=== PATIENT | male | born 1955 | race Caucasian/White ===

== ENCOUNTER → 2017-04-04 | Outpatient (CLI) | payer OTHER ==
[2015-12-01 22:45] VITALS: BP 120/71
[~2017-04-04] MED LIST: ASPI81TA50 PO; BUPIVACAINE MPF 0.25% 10 ML VIAL. ONE; CHOL400T14 PO; FENO150C PO; FENO50CA PO; IBAN150T PO; IV NORMAL SALINE 1,000ML 1,000 ML ONE; LIDOCAINE 1% PF 30 ML VIAL. ONE; MELO15TA6 PO; MIDAZOLAM HCL PF 2 MG/2 ML VIAL. ONE; OMEG500C3 PO; methylPREDNISolone ACETATE 40 MG/ML VIAL. ONE
== END | disposition home or self-care (01) ==
LOC: SURG 06:40
PROVIDERS: ATTEND Anesthesiology Pain Medicine
DX: M47.816 Spondylosis without myelopathy or radiculopathy, lumbar region (principal); I48.91 Unspecified atrial fibrillation; M19.91 Primary osteoarthritis, unspecified site; Z98.890 Other specified postprocedural states
CPT/HCPCS: 64635; 64636; J1030; J2001; J2250; J3010; J3490; J7030

== ENCOUNTER → 2017-05-30 | Outpatient (CLI) | payer OTHER ==
[2015-12-01 22:45] VITALS: BP 120/71
[~2017-05-30] MED LIST changes: -BUPIVACAINE MPF 0.25% 10 ML VIAL. ONE; -IV NORMAL SALINE 1,000ML 1,000 ML ONE; -LIDOCAINE 1% PF 30 ML VIAL. ONE; -MIDAZOLAM HCL PF 2 MG/2 ML VIAL. ONE; -methylPREDNISolone ACETATE 40 MG/ML VIAL. ONE
== END | disposition home or self-care (01) ==
LOC: SURG 08:06
PROVIDERS: ATTEND Anesthesiology Pain Medicine
DX: M47.816 Spondylosis without myelopathy or radiculopathy, lumbar region (principal); I48.0 Paroxysmal atrial fibrillation; I10 Essential (primary) hypertension; Z87.891 Personal history of nicotine dependence
CPT/HCPCS: 99213

== ENCOUNTER 2018-02-25 16:15 | Emergency (ER) | payer OTHER ==
[~2018-02-25] VITALS: Ht 177.8 cm; Wt 99.8 kg
--- NOTE | 2018-02-25 17:04 | RAD ---
Left shoulder, 3 views, 02/25/2018: HISTORY: Fall, pain There is an old healed fracture of the mid humeral shaft with mild angulation. No acute shoulder fracture or dislocation is identified. IMPRESSION: No acute abnormality is detected. Left elbow, 3 views, 02/25/2018: There is a fracture of the radial head with slight depression of an anterolateral fragment. No other fracture or dislocation is identified. A moderate size elbow joint effusion is present. IMPRESSION: Acute radial head fracture. Left wrist, 3 views, 02/25/2018: No fracture or dislocation is identified. There is mild soft tissue swelling. IMPRESSION: No acute bony abnormality is detected. Electronically signed by: Faustino Chappell MD (02/25/2018 5:01 PM) [facility]
[2018-02-25] MEDS ORDERED: HYDR-971 PO (17:29)
--- NOTE | 2018-02-25 17:30 | PHYS DOC ---
Past History Past Medical History: A-Fib, High Cholesterol Past Surgical History: Tonsillectomy, Other Alcohol Use: Occasionally Drug Use: None Adult General Chief Complaint Chief Complaint: WRIST PAIN HPI HPI Patient is a 62 year old left handed male who presents with draining of a fall and pain in left wrist and elbow prior to arrival to ER. Patient states he had a fall from ladder and landed on his left side without hitting his head or loss of consciousness and complaining of pain in his left wrist and elbow without other injuries or focal neuro deficit. Patient rated his pain 4 out of 10 and doesn't want to have pain medication in ER. Review of Systems Review of Systems Constitutional: Denies fever or chills [] Eyes: Denies change in visual acuity, redness, or eye pain [] HENT: Denies nasal congestion or sore throat [] Respiratory: Denies cough or shortness of breath [] Cardiovascular: No additional information not addressed in HPI [] GI: Denies abdominal pain, nausea, vomiting, bloody stools or diarrhea [] : Denies dysuria or hematuria [] Musculoskeletal: Denies back pain, reports joint pain [] Integument: Denies rash or skin lesions [] Neurologic: Denies headache, focal weakness or sensory changes [] Endocrine: Denies polyuria or polydipsia [] All other systems were reviewed and found to be within normal limits, except as documented in this note. Allergies Allergies Allergies Coded Allergies Type Severity Reaction Last Updated Verified No Known Drug Allergies 12/01/15 No Physical Exam Physical Exam Constitutional: Well developed, well nourished, no acute distress, non-toxic appearance. [] HENT: Normocephalic, atraumatic Eyes: PERRLA, EOMI, conjunctiva normal, no discharge. [] Neck: Normal range of motion, no tenderness, supple, no stridor. [] Cardiovascular:Heart rate regular rhythm, no murmur [] Lungs & Thorax: Bilateral breath sounds clear to auscultation [] Abdomen: Bowel sounds normal, soft, no tenderness, no masses, no pulsatile masses. [] Skin: Warm, dry, no erythema, no rash. [] Back: No tenderness, no CVA tenderness. [] Extremities: Left upper extremity without deformity or edema or contusion, tenderness in left elbow and left wrist without neurovascular deficit Neurologic: Alert and oriented X 3, normal motor function, normal sensory function, no focal deficits noted. [] Psychologic: Affect normal, judgement normal, mood normal. [] Current Patient Data Vital Signs Vital Signs Date Time Temp Pulse Resp B/P (MAP) Pulse Ox O2 Delivery O2 Flow Rate FiO2 02/25/18 16:25 98.1 91 16 94 Room Air EKG EKG [] Radiology/Procedures Radiology/[place] [address] IMAGING REPORT Signed PATIENT: KOKI MENON ACCOUNT: [id number] : 1955 LOCATION: ER AGE: 62 SEX: M EXAM STATUS: REG ER ORD. PHYSICIAN: JATIN BENNETT MD REASON: injury PROCEDURE: ELBOW LEFT 3V Left shoulder, 3 views, 02/25/2018: HISTORY: Fall, pain There is an old healed fracture of the mid humeral shaft with mild angulation. No acute shoulder fracture or dislocation is identified. IMPRESSION: No acute abnormality is detected. Left elbow, 3 views, 02/25/2018: There is a fracture of the radial head with slight depression of an anterolateral fragment. No other fracture or dislocation is identified. A moderate size elbow joint effusion is present. IMPRESSION: Acute radial head fracture. Left wrist, 3 views, 02/25/2018: No fracture or dislocation is identified. There is mild soft tissue swelling. IMPRESSION: No acute bony abnormality is detected. Electronically signed by: Faustino Chappell MD (02/25/2018 5:01 PM) [facility] DICTATED AND SIGNED BY: FAUSTINO CHAPPELL MD DATE: 02/25/18 0144 CC: SRIRAM LIZ; JATIN BENNETT MD ~ Course & Med Decision Making Course & Med Decision Making Pertinent Imaging studies reviewed. (See chart for details) Patient had a fall and left radial head fracture and long arm splint was applied in ER and patient instructed to follow-up with continuous improvement coach orthopedic physician. discharge: I've spoken with the patient and/or caregivers. I've explained the patient's condition, diagnosis and treatment plan based on information available to me at this time. I've answered the patient's and/or caregivers questions and addressed any concerns. The patient and/or caregivers have a good understanding the patient's diagnosis, condition and treatment plan as can be expected at this point. Vital signs have been stabilized. The patient's condition is stable for discharge from the emergency department. The patient will pursue further outpatient evaluation with her primary care provider or other designated consulting physician as outlined in the discharge instructions. Patient and/or caregivers are agreeable to this plan of care and follow-up instructions have been explained in detail. The patient and/or caregivers have received these instructions in written format and expressed understanding of these discharge instructions. The patient and her caregivers are aware that if any significant change in condition or worsening of symptoms should prompt him to immediately return to this of the closest emergency department. If an emergent department is not readily available I would encourage him to call 911. Boris Disclaimer Dragon Disclaimer This electronic medical record was generated, in whole or in part, using a voice recognition dictation system. Departure Departure: Impression: Primary Impression: Fracture of radial head, left, closed Additional Impression: Fall from ladder Disposition: 01 HOME, SELF-CARE (at 1740) Condition: IMPROVED Referrals: SRIRAM LIZ (PCP) Patient Instructions: Radial Head Fracture Additional Instructions: Follow-up with on-call orthopedic physician Dr. Ang, call [phone] to make an appointment to 1-2 days Apply ice on the affected area Return to ER if not getting better Scripts Hydrocodone Bit/Acetaminophen (NORCO 5-325 TABLET) 1 Each Tablet 1 TAB PO PRN Q6HRS PRN for PAIN, #20 TAB 0 Refills Prov: JATIN BENNETT MD 02/25/18 Problem Qualifiers JATIN BENNETT MD Feb 25, 2018 17:30
[2018-02-25 17:55] VITALS: BP 154/88
== END 2018-02-25 18:02 | disposition home or self-care (01) ==
LOC: ER 16:15
DX: S52.122A Displaced fracture of head of left radius, initial encounter for closed fracture (principal); I48.91 Unspecified atrial fibrillation; E78.00 Pure hypercholesterolemia, unspecified; W11.XXXA Fall on and from ladder, initial encounter; Y93.89 Activity, other specified; Y92.89 Other specified places as the place of occurrence of the external cause; Y99.8 Other external cause status
CPT/HCPCS: 29105; 73030; 73080; 73110; 99284

== ENCOUNTER → 2018-03-02 | Outpatient (CLI) | payer OTHER ==
[2018-02-25 17:55] VITALS: BP 154/88
[~2018-03-02] MED LIST changes: +HYDR-971 PO
--- NOTE | 2018-03-02 16:17 | RAD ---
4 view study of the left elbow Clinical indications: Follow-up of radial fracture. COMPARISON: February 25, 2018. FINDINGS: Again seen is a joint effusion. This is due to a proximal radial head fracture which is mildly depressed by 2.5 mm. It is unchanged in appearance and position from the previous study. The fracture is not yet healed. No osteolytic process is seen. Alignment is normal. IMPRESSION: Nonhealed unchanged proximal radial head fracture. 3 view left wrist study Clinical indications: Follow-up of radial fracture. FINDINGS: Left wrist is immobilized in cast which obscures fine bony detail. No fracture line is seen involving the left wrist. Alignment is normal. No osteolytic process is seen. Radial carpal articulation is maintained. IMPRESSION: No fracture line involving the left wrist. Electronically signed by: Joel Owusu MD (03/02/2018 4:14 PM) [facility]
== END | disposition home or self-care (01) ==
LOC: RAD 11:08
PROVIDERS: ATTEND Orthopaedic Surgery Sports Medicine
DX: S52.122G Displaced fracture of head of left radius, subsequent encounter for closed fracture with delayed healing (principal); X58.XXXD Exposure to other specified factors, subsequent encounter
CPT/HCPCS: 73070; 73110

== ENCOUNTER → 2018-04-06 | Outpatient (CLI) | payer OTHER ==
[~2018-04-06] MED LIST changes: +HYDR-3165 PO; -HYDR-971 PO
--- NOTE | 2018-04-06 15:53 | RAD ---
Indications: Follow-up of wrist and elbow fractures. 3 view study of the left wrist: Comparison is made to a prior study dated March 02, 2018. Healing sclerosis of the distal left radial epiphysis involving the radial styloid process is now evident consistent with healing nondisplaced fracture with intra-articular extension. Alignment is normal. No osteolytic process is seen. IMPRESSION: Healing nondisplaced distal left radial fracture. 3 view study of the left elbow: Comparison made to a prior study dated March 02, 2018. Again seen is a fracture of the proximal radial head with intra-articular extension. There is mild depression of the fracture fragment along the articular surface of 2 mm. This is unchanged. The fracture is not yet healed. Alignment is normal. No lytic process is seen. IMPRESSION: Unchanged nonhealed fracture of the proximal left radius. Electronically signed by: Joel Owusu MD (04/06/2018 3:50 PM) [id number]
== END | disposition home or self-care (01) ==
LOC: RAD 10:52
PROVIDERS: ATTEND Orthopaedic Surgery Sports Medicine
DX: S52.592D Other fractures of lower end of left radius, subsequent encounter for closed fracture with routine healing (principal); X58.XXXD Exposure to other specified factors, subsequent encounter
CPT/HCPCS: 73080; 73110

== ENCOUNTER 2018-05-22 17:45 | Emergency (ER) | payer OTHER ==
[~2018-05-22] VITALS: Ht 177.8 cm; Wt 102.5 kg
[2018-05-22 18:02] VITALS: BP 160/95
--- NOTE | 2018-05-22 18:04 | PHYS DOC ---
Past History Past Medical History: A-Fib, High Cholesterol Past Surgical History: Tonsillectomy, Other Alcohol Use: Occasionally Drug Use: None Adult General Chief Complaint Chief Complaint: FOOT INJURY PAIN HPI HPI Patient is a 63 year old male who presents with foot pain. Pt reports having foot pain at the 5th metatarsal and plantar aspect. This has been going on for the past a couple of weeks. Pt thought he might have broken it since it feels the same pain as the other foot that he broke before. He has not tried anything to make him feel better. denies any other symptoms. Review of Systems Review of Systems Constitutional: Denies fever or chills [] Musculoskeletal: Denies back pain or joint pain [] Integument: Denies rash or skin lesions [] Neurologic: Denies headache, focal weakness or sensory changes [] Complete systems were reviewed and found to be within normal limits, except as documented in this note. Allergies Allergies Allergies Coded Allergies Type Severity Reaction Last Updated Verified No Known Drug Allergies 12/01/15 No Physical Exam Physical Exam Constitutional: Well developed, well nourished, no acute distress, non-toxic appearance. [] HENT: Normocephalic, atraumatic Neck: Normal range of motion, supple Cardiovascular: right PT/DP +2, CR < 2 sec Skin: Warm, dry, no erythema] Extremities: tenderness at 5th metatarsal - plantar aspect, no cyanosis, no clubbing, ROM intact, no edema. [] Neurologic: Alert and oriented X 3, no focal deficits noted. [] Psychologic: Affect normal, judgement normal EKG EKG [] Radiology/Procedures Radiology/Procedures fracture 5th [] Course & Med Decision Making Course & Med Decision Making Patient presents with several week history of right foot pain without known trauma. Tenderness to plantar aspect and to 5th metatarsal. patient concerned for possible fracture. XR ordered and pending. ICE applied. Sign out given to Dr. Boyd for further evaluation and final disposition. Discussed current plan with patient and family, who acknowledge understanding and agreement. Diagnoses fracture of the fifth metatarsal on the right Patient to follow up with endocrinology since he has a history of osteopenia, with history of fractures in the past Also to follow-up with orthopedics Boris Disclaimer Boris Disclaimer This electronic medical record was generated, in whole or in part, using a voice recognition dictation system. Departure Departure: Impression: Primary Impression: Foot pain, right Referrals: JEY AYALA SOFTWARE CONFIGURATION ENGINEER (PCP) ANGEL STARKS DO May 22, 2018 18:04 SHANIKA BOYD MD May 22, 2018 18:39
--- NOTE | 2018-05-22 23:43 | RAD ---
FOOT RIGHT 3V Clinical Indication: RIGHT FOOT PAIN AROUND 5TH METATARSAL AND PLANTAR ASPECT Comparison: None. Findings: Dorsal navicular osteophyte. No dorsal soft tissue swelling of the foot. There is inferior calcaneal bone spur. There is no acute fracture. There is a 4 mm lateral cortical lucency of the proximal fifth metatarsal. Cannot exclude bony erosion. There is no lateral foot soft tissue swelling. The bony articulations are maintained. IMPRESSION: Cannot exclude tiny cortical erosion of the lateral proximal fifth metatarsal. Correlate for any signs of infection. Electronically signed by: Jesse Pantoja MD (05/22/2018 11:39 PM) [facility]
== END 2018-05-22 18:55 | disposition home or self-care (01) ==
LOC: ER 17:45
DX: S92.351A Displaced fracture of fifth metatarsal bone, right foot, initial encounter for closed fracture (principal); I48.91 Unspecified atrial fibrillation; E78.00 Pure hypercholesterolemia, unspecified; X58.XXXA Exposure to other specified factors, initial encounter; Y93.89 Activity, other specified; Y92.89 Other specified places as the place of occurrence of the external cause; Y99.8 Other external cause status
CPT/HCPCS: 73630; 99283

== ENCOUNTER 2018-12-26 10:48 | Emergency (ER) | payer OTHER ==
[~2018-12-26 10:48] MED LIST changes: -IBAN150T PO; +IBAN150T15 PO
[2018-12-26 10:58] VITALS: BP 157/89
[2018-12-26] MEDS ORDERED: SILV20CR14 TP (11:20)
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
[2018-12-26] MEDS ORDERED: silver sulfADIAZINE 1% CREAM 50GM JAR. TP ONE (11:30)
== END 2018-12-26 11:27 | disposition home or self-care (01) ==
LOC: ER 10:48
DX: T22.211A Burn of second degree of right forearm, initial encounter (principal); T20.16XA Burn of first degree of forehead and cheek, initial encounter; T20.17XA Burn of first degree of neck, initial encounter; I48.91 Unspecified atrial fibrillation; M19.90 Unspecified osteoarthritis, unspecified site; W40.1XXA Explosion of explosive gases, initial encounter; Y93.89 Activity, other specified; Y92.89 Other specified places as the place of occurrence of the external cause; Y99.8 Other external cause status
CPT/HCPCS: 99283

== ENCOUNTER 2019-09-02 13:50 | Emergency (ER) | payer OTHER ==
[~2019-09-02] VITALS: Ht 177.8 cm; Wt 99.8 kg
[~2019-09-02 13:50] MED LIST changes: +SILV20CR14 TP
[2019-09-02 14:03] VITALS: BP 147/82
[2019-09-02] MEDS: DIPH,PERTUSS(ACELL),TET VAC/PF 0.5 ML SYRINGE. VAX IM ONE (14:37)
[2019-09-02] MEDS: LIDOCAINE 1% Multi-Dose 20 ML VIAL. INJ ONE (14:38)
--- NOTE | 2019-09-02 14:48 | RAD ---
3 views right finger HISTORY: Laceration with a salt AP view of the hip was obtained as well as AP and lateral, May views of the middle finger. Irregularity of the tuft of the middle finger appears old. There is gauze seen around the index finger. There is no sharp linear lucencies to suggest an acute fracture. The remaining visualized osseous structures appear normal. There is no radiopaque foreign body. IMPRESSION: Probable old injury to the tuft of the middle finger. No acute bony abnormality identified. Electronically signed by: Toni Brown III, MD (09/02/2019 2:45 PM) [id number]
--- NOTE | 2019-09-02 15:00 | PHYS DOC ---
Past History Past Medical History: A-Fib, Arthritis Past Surgical History: Tonsillectomy Alcohol Use: Rarely Drug Use: None Laceration Repair Lac Repair Indication: [] Procedure: The patient was placed in the appropriate position and anesthesia around the [LAC WAS/WERE] [ANESTHESIA]. The area was then [CLEANSED/DEBRIDED]. The laceration was [LAC CLOSURE]. [ADDITIONAL LACS] The wound area was then dressed with [WOUND COVERING]. Total repaired wound length: [TOTAL REPAIR LENGTH]. Other Items: [OTHER ITEMS] The patient tolerated the procedure [TOLERATED]. Complications: [COMPLICATIONS]. Adult General Chief Complaint Chief Complaint: LACERATION/AVULSION HPI HPI Patient is a 64 year old male who presents with laceration to his finger. Patient was using a saw and got his finger caught. He denies any severe pain. He has full sensation and range of motion of his hand. Denies any other injuries. He is unsure of his last tetanus shot. Review of Systems Review of Systems Constitutional: Denies fever or chills [] Eyes: Denies change in visual acuity, redness, or eye pain [] HENT: Denies nasal congestion or sore throat [] Respiratory: Denies cough or shortness of breath [] Cardiovascular: No additional information not addressed in HPI [] GI: Denies abdominal pain, nausea, vomiting, bloody stools or diarrhea [] : Denies dysuria or hematuria [] Musculoskeletal: Denies back pain or joint pain [] Integument: Denies rash or skin lesions [] Neurologic: Denies headache, focal weakness or sensory changes [] Endocrine: Denies polyuria or polydipsia [] All other systems were reviewed and found to be within normal limits, except as documented in this note. Current Medications Current Medications Current Medications Medications (Trade) Dose Ordered Sig/Annabelle Start Time Stop Time Status Last Admin Dose Admin Diphtheria/ Pertussis/Tetanus Vacc (ADACEL TDap SYRINGE) 0.5 ml ONCE ONCE 09/02/19 14:30 09/02/19 14:31 DC 09/02/19 14:37 0.5 ML Lidocaine HCl 20 ml 1X ONCE 09/02/19 14:45 09/02/19 14:46 DC 09/02/19 14:38 20 ML Allergies Allergies Allergies Coded Allergies Type Severity Reaction Last Updated Verified No Known Drug Allergies 12/01/15 No Physical Exam Physical Exam Constitutional: Well developed, well nourished, Cooperative, NAD, non-toxic appearing HEENT: Normocephalic, atraumatic, oropharynx moist, EOMI, PERRL, no drainage from eyes, normal conjunctiva Respiratory: CTA bilaterally, no respiratory distress, no wheezing/crackles Abdomen: Soft, nontender, nondistended, no masses Skin: Warm, dry. Fourth finger distal laceration with jagged edges measuring 2 cm Extremities: No obvious deformities Neurologic: Alert and Oriented x3, motor and sensory function grossly normal, no focal deficits Psychologic: Normal affect, normal judgment, normal mood. No SI/HI Current Patient Data Vital Signs Vital Signs Date Time Temp Pulse Resp B/P (MAP) Pulse Ox O2 Delivery O2 Flow Rate FiO2 09/02/19 14:03 97.9 79 20 147/82 (103) 99 Room Air EKG EKG [] Radiology/Procedures Radiology/Procedures [] Course & Med Decision Making Course & Med Decision Making Pertinent Labs and Imaging studies reviewed. (See chart for details) Patient is a 64-year-old male who presents to the emergency room after cutting himself while using a saw. X-ray was done and there is no bone involvement. Tetanus was updated. The laceration was repaired without any difficulty. Patient's test results and vitals while in the ED were fully reviewed and discussed with the patient. Patient is stable and at this time does not need admission to the hospital. We have discussed strict return precautions and the importance of following up with their Primary Care Physician. Patient stated understanding and was given an opportunity to ask any questions. Dragon Disclaimer Dragon Disclaimer This electronic medical record was generated, in whole or in part, using a voice recognition dictation system. Departure Departure: Impression: Primary Impression: Laceration of finger Disposition: HOME, SELF-CARE Condition: STABLE Referrals: PCP,NO (PCP) Patient Instructions: Laceration Care, Adult, [id number] YONI RODRIGUEZ MD Sep 02, 2019 15:00
== END 2019-09-02 15:10 | disposition home or self-care (01) ==
LOC: ER 13:50
DX: S61.214A Laceration without foreign body of right ring finger without damage to nail, initial encounter (principal); I48.91 Unspecified atrial fibrillation; M19.90 Unspecified osteoarthritis, unspecified site; W27.0XXA Contact with workbench tool, initial encounter; Y93.89 Activity, other specified; Y92.89 Other specified places as the place of occurrence of the external cause; Y99.8 Other external cause status
CPT/HCPCS: 12001; 73140; 90471; 90715; 99283-25

== ENCOUNTER → 2019-12-21 | Outpatient (CLI) | payer OTHER ==
--- NOTE | 2019-12-21 09:22 | RAD ---
3 view study of both hands Clinical indications: Pain and trigger finger bilaterally. Joint pain/stiffness. Left hand: No acute fracture or dislocation or lytic process is evident. Scaphoid bone is intact. No erosive arthropathy is evident. There is mild degenerative spurring of the first carpal metacarpal joint. There is mild primary degenerative arthritis of the interphalangeal joints and the first metacarpal phalangeal joint. Right hand: No acute fracture or dislocation or lytic process is evident. Scaphoid bone is intact. No erosive arthropathy is evident. There is mild degenerative spurring and joint space narrowing of the first carpal metacarpal joint. There is mild primary degenerative arthritis of the interphalangeal joints. 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 Electronically signed by: Joel Owusu MD (12/21/2019 9:19 AM) [id number]
== END | disposition home or self-care (01) ==
LOC: RAD 08:06
PROVIDERS: ATTEND Physician Assistant
DX: M18.11 Unilateral primary osteoarthritis of first carpometacarpal joint, right hand (principal); M19.041 Primary osteoarthritis, right hand; M77.9 Enthesopathy, unspecified; M65.30 Trigger finger, unspecified finger
CPT/HCPCS: 73130